=== PATIENT | female | born 1945 | race Caucasian/White ===

== ENCOUNTER 2016-07-19 11:49 | Observation (INO) | payer MEDICARE ==
[~2016-07-19] VITALS: Ht 154.9 cm; Wt 76.0 kg
[~2016-07-19 11:49] MED LIST: CITA20TA4 PO; DICY20TA10 PO; FURO20TA PO; GLUCTAB PO; HYDR-3533 PO; LOSA25TA31 PO; METO100T9 PO; OMEP20TA39 PO; XANA0.5T PO
[2016-07-19 11:53] VITALS: BP 141/90; PULSE 78; RESP 20; TEMP 98.6; O2SAT 99
--- NOTE | 2016-07-19 12:09 | PD ---
Physical Exam Time Seen by Provider: 12:05 Narrative 71 year old female presents to bilateral arm weakness and ache persisting over the last two weeks. Pt describes sensation as a " arm" feeling. Reports sensation began in the proximal extremities and now involves almost her entire arms. She came today because last night she was awoken by a chest pain that resolved after about 30 minutes. She took xanax at that time. Reports history of HTN, CAD, DM, states she has been told she may have had a silent UT. States today her left arm seems to be more affected with these symptoms, more so since she woke up this morning. No recent illness, fever, or chills. Data Data Last Documented VS Vital Signs Date Time Temp Pulse Resp B/P Pulse Ox O2 Delivery O2 Flow Rate FiO2 07/19/16 11:53 98.6 78 20 141/90 99 MDM Medical Record Reviewed: Yes Supervised Visit with WINDY: No Narrative Course 71 year old female presents to ED for evaluation of arm discomfort and an episode of chest pain last night. VSS. Appears without distress. Condition: Stable Ora Gaston Jul 19, 2016 12:09
[2016-07-19] MEDS ORDERED: DICY20TA10 PO (14:31)
[2016-07-19] MEDS ORDERED: CITA20TA4 PO (14:31)
[2016-07-19] MEDS ORDERED: LOSA25TA PO (14:31)
[2016-07-19] MEDS ORDERED: DIPH2.5T14 PO (14:31)
[2016-07-19] MEDS ORDERED: ALPR0.5T3 PO (14:31)
[2016-07-19] MEDS ORDERED: METO25TA6 PO (14:31)
[2016-07-19] MEDS ORDERED: NEXI40GR (14:31)
[2016-07-19] MEDS ORDERED: FLUT5SPR (14:31)
[2016-07-19] MEDS ORDERED: METF500T PO (14:31)
[2016-07-19] MEDS ORDERED: FURO20TA PO (14:31)
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
[2016-07-19] MEDS ORDERED: SODIUM CHLORIDE 0.9% FLUSH 10 ML FLUSH IVF PRN (14:45)
[2016-07-19 15:01] LABS: APTT (PATIENT) 22.4 SEC (24.3-30.1); AUTOMATED NEUTROPHIL # 3.6 TH/MM3 (1.8-7.7); BASOPHIL % 0.7 % (0.0-2.0); EOSINOPHIL # 0.1 TH/MM3 (0-0.4); EOSINOPHIL % 1.4 % (0.0-4.0); HEMATOCRIT 37.6 % (35.0-46.0); HEMO FLAGS DIFF FINAL; INTERNATIONAL NORMALIZED RATIO 0.9 RATIO; LYMPH % 34.5 % (9.0-44.0); LYMPHOCYTE # 2.2 TH/MM3 (1.0-4.8); MEAN CELL VOLUME 84.8 FL (80.0-100.0); MEAN CORPUSCULAR HEMOGLOBIN 28.6 PG (27.0-34.0); MEAN CORPUSCULAR HGB CONC 33.8 % (32.0-36.0); MONO % 6.4 % (0.0-8.0); PLATELET COUNT 223 TH/MM3 (150-450); PROTHROMBIN TIME - PATIENT 10.1 SEC (9.8-11.6); RED BLOOD COUNT 4.44 MIL/MM3 (4.00-5.30); RED CELL DISTRIBUTION WIDTH 14.1 % (11.6-17.2); WHITE BLOOD COUNT 6.3 TH/MM3 (4.0-11.0)
[2016-07-19 15:20] LABS: ALT (GPT) 22 U/L (10-53); ANION GAP 9 MEQ/L (5-15); AST (GOT) 21 U/L (15-37); BICARBONATE 28.5 MEQ/L (21.0-32.0); BLOOD UREA NITROGEN 13 MG/DL (7-18); CHLORIDE 103 MEQ/L (98-107); GLOMERULAR FILTRATION RATE 67 ML/MIN (>89); MAGNESIUM 1.9 MG/DL (1.5-2.5); POTASSIUM 4.2 MEQ/L (3.5-5.1); SODIUM (NA) 140 MEQ/L (136-145)
[2016-07-19 15:22] LABS: ALKALINE PHOSPHATASE 59 U/L (45-117); CREATINE KINASE 119 U/L (26-192); TOTAL BILIRUBIN ADULT 0.2 MG/DL (0.2-1.0)
--- NOTE | 2016-07-19 16:28 | RADRPT ---
EXAM DATE/TIME: 07/19/2016 15:02 [facility] COMPARISON: CHEST SINGLE AP, January 27, 2013, 22:40. INDICATIONS : Short of breath. MEDICAL HISTORY : None. SURGICAL HISTORY : None. ENCOUNTER: Initial ACUITY: 1 day PAIN SCORE: 0/10 LOCATION: Bilateral chest FINDINGS: A single view of the chest demonstrates the lungs to be symmetrically aerated without evidence of mas s, infiltrate or effusion. No evidence of pneumothorax. The cardiomediastinal contours are unremark able. Osseous structures are intact. CONCLUSION: The lungs are clear. Richar Marie MD on July 19, 2016 at 16:26 Board Certified Radiologist. This report was verified electronically.
[2016-07-19] MEDS ORDERED: NITROGLYCERIN 0.4 MG SL 25 TABS/BTL SL PRN (17:45)
[2016-07-19] MEDS ORDERED: ONDANSETRON HCL 4 MG/2 ML VIAL IV PRN (17:45)
[2016-07-19] MEDS ORDERED: ACETAMINOPHEN 500 MG CPLT PO PRN (17:45)
[2016-07-19 17:50] VITALS: O2SAT 98
[2016-07-19 18:20] VITALS: BP 139/64; PULSE 68; O2SAT 96
[2016-07-19 18:29] VITALS: BP 134/69; O2SAT 96
[2016-07-19 18:30] VITALS: O2SAT 96
[2016-07-19 18:33] LABS: CREATINE KINASE 95 U/L (26-192)
--- NOTE | 2016-07-19 18:46 | PD.CARD.PN ---
Objective Vital Signs / I&O Vital Signs Date Time Temp Pulse Resp B/P Pulse Ox O2 Delivery O2 Flow Rate FiO2 07/19/16 18:30 96 Room Air 07/19/16 18:29 134/69 96 Room Air 07/19/16 18:29 96 Room Air 07/19/16 18:20 68 139/64 96 Room Air 07/19/16 17:50 98 21 07/19/16 14:23 Room Air 07/19/16 11:53 98.6 78 20 141/90 99 Laboratory Laboratory Tests Test 07/19/16 07/19/16 14:40 17:53 White Blood Count 6.3 TH/MM3 Red Blood Count 4.44 MIL/MM3 Hemoglobin 12.7 GM/DL Hematocrit 37.6 % Mean Corpuscular Volume 84.8 FL Mean Corpuscular Hemoglobin 28.6 PG Mean Corpuscular Hemoglobin 33.8 % Concent Red Cell Distribution Width 14.1 % Platelet Count 223 TH/MM3 Mean Platelet Volume 8.3 FL Neutrophils (%) (Auto) 57.0 % Lymphocytes (%) (Auto) 34.5 % Monocytes (%) (Auto) 6.4 % Eosinophils (%) (Auto) 1.4 % Basophils (%) (Auto) 0.7 % Neutrophils # (Auto) 3.6 TH/MM3 Lymphocytes # (Auto) 2.2 TH/MM3 Monocytes # (Auto) 0.4 TH/MM3 Eosinophils # (Auto) 0.1 TH/MM3 Basophils # (Auto) 0.0 TH/MM3 CBC Comment DIFF FINAL Differential Comment Prothrombin Time 10.1 SEC Prothromb Time International 0.9 RATIO Ratio Activated Partial 22.4 SEC Thromboplast Time Sodium Level 140 MEQ/L Potassium Level 4.2 MEQ/L Chloride Level 103 MEQ/L Carbon Dioxide Level 28.5 MEQ/L Anion Gap 9 MEQ/L Blood Urea Nitrogen 13 MG/DL Creatinine 0.84 MG/DL Estimat Glomerular Filtration 67 ML/MIN Rate Random Glucose 103 MG/DL Calcium Level 8.9 MG/DL Magnesium Level 1.9 MG/DL Total Bilirubin 0.2 MG/DL Aspartate Amino Transf 21 U/L (AST/SGOT) Alanine Aminotransferase 22 U/L (ALT/SGPT) Alkaline Phosphatase 59 U/L Total Creatine Kinase 119 U/L 95 U/L Creatine Kinase MB 1.0 NG/ML Troponin I LESS THAN 0.02 LESS THAN 0.02 NG/ML NG/ML Total Protein 7.8 GM/DL Albumin 3.9 GM/DL Assessment and Plan Discussed Condition With Upon entering patient's room for assessment and interview, patient states she was told by ER physician she will be discharged this evening. ER physician spoke with patient's sharepoint consultant, Dr. Snider, and instructed patient may be discharged being ruled out with 2 sets of EKGs and cardiac enzymes and to with follow-up in his office. ER physician will discharge patient accordingly. Kami Cloud Jul 19, 2016 18:45
[2016-07-19] MEDS ORDERED: SODIUM CHLORIDE 0.9% FLUSH 10 ML FLUSH IV FLUSH SCH (21:00)
--- NOTE | 2016-07-19 23:42 | EKG ---
Date Performed: 07/19/2016 Time Performed: 12:40:24 PTAGE: 71 years EKG: Sinus rhythm Nonspecific ST and T wave abnormalities PREVIOUS TRACING : 12/03/2014 08.46 Compared to prior tracing no significant change DOCTOR: Víctor Sutton Interpretating Date/Time 07/19/2016 23:41:58
[2016-07-20] MEDS ORDERED: ASPIRIN 325 MG TAB PO SCH (09:00)
--- NOTE | 2016-07-20 12:53 | EKG ---
Date Performed: 07/19/2016 Time Performed: 18:23:50 PTAGE: 71 years EKG: Sinus rhythm NORMAL ECG INTERPRETATION BASED ON A DEFAULT AGE OF 40 YEARS PREVIOUS TRACING : 07/19/2016 12.40 Since previous tracing, no significant change noted DOCTOR: Myles Granados Interpretating Date/Time 07/20/2016 12:52:16
== END 2016-07-19 19:57 | disposition home or self-care (01) ==
LOC: NEPC 11:49 → NEDA 17:01
PROVIDERS: ADMIT Internal Medicine Interventional Cardiology; ATTEND Internal Medicine Interventional Cardiology
DX: R07.9 Chest pain, unspecified (principal); I25.10 Atherosclerotic heart disease of native coronary artery without angina pectoris; I11.0 Hypertensive heart disease with heart failure; I50.9 Heart failure, unspecified; F41.9 Anxiety disorder, unspecified; F32.9 Major depressive disorder, single episode, unspecified; E78.00 Pure hypercholesterolemia, unspecified; K21.9 Gastro-esophageal reflux disease without esophagitis; Z88.5 Allergy status to narcotic agent; E11.40 Type 2 diabetes mellitus with diabetic neuropathy, unspecified; Z79.84 Long term (current) use of oral hypoglycemic drugs
CPT/HCPCS: 71010; 80053; 82550; 82552; 83735; 84484; 85025; 85610; 85730; 93005; 99285; G0378